=== PATIENT | female | born 1980 | race Two or more races ===

== ENCOUNTER 2022-11-03 02:38 | Emergency (ER) | payer SELFPAY ==
[2022-11-03 02:46] VITALS: BMI 44.6
[2022-11-03 03:44] LABS: BASO % 0.4 % (0-2.0); EOS % 4.7 % (0-4.5); HEMATOCRIT 34.2 % (32.4-45.2); HEMOGLOBIN 11.5 GM/dL (10.7-15.3); LYMPH % 29.4 % (8-40); MCH 27.9 pg (25.7-33.7); MCHC 33.5 g/dl (32.0-36.0); MEAN CELL VOLUME 83.4 fl (80-96); MEAN PLT VOLUME 7.5 fl (7.5-11.1); MONO % 6.9 % (3.8-10.2); NEUT % 58.6 % (42.8-82.8); PLATELET COUNT 327 10^3/uL (134-434); RBC 4.11 M/mm3 (3.60-5.2); RDW 16.2 % (11.6-15.6); WHITE BLOOD COUNT 8.9 K/mm3 (4.0-10.0)
[2022-11-03 03:51] LABS: INR 1.18 (0.83-1.09); PROTHROMBIN TIME (PATIENT) 13.7 SEC (9.7-13.0)
[2022-11-03 03:53] LABS: ACTIVATED PTT 31.1 SECONDS (25.2-36.5)
[2022-11-03 04:03] LABS: POTASSIUM 3.3 mmol/L (3.5-5.1)
[2022-11-03 04:05] LABS: CALCIUM 8.7 mg/dL (8.5-10.1)
[2022-11-03 04:06] LABS: ALBUMIN 3.1 g/dl (3.4-5.0); BLOOD UREA NITROGEN 9.3 mg/dL (7-18)
[2022-11-03 04:09] LABS: CREATININE 0.7 mg/dL (0.55-1.3)
[2022-11-03 04:10] LABS: BILIRUBIN,TOTAL 0.3 mg/dL (0.2-1); TOT PROT 6.9 g/dl (6.4-8.2)
[2022-11-03 04:14] LABS: N-TERMINAL BNP 24.3 pg/ml (5-125)
[2022-11-03 09:55] VITALS: BP 122/77; PULSE 79; RESP 18; TEMP 98.4
[2022-11-03] MEDS ORDERED: AZITHROMYCIN 250 MG TABLET PO ONE (10:31)
[2022-11-03] MEDS ORDERED: AZITHROMYCIN 500 MG TABLET ONE (10:37)
== END 2022-11-03 11:46 | disposition left against medical advice (07) ==
LOC: JER 02:38
DX: R07.89 Other chest pain (principal); R20.0 Anesthesia of skin; R20.2 Paresthesia of skin; R06.02 Shortness of breath; Z20.822 Contact with and (suspected) exposure to COVID-19
CPT/HCPCS: 0241U-QW; 36415; 71045-TC-FY; 71275-TC; 80053; 83735; 83880; 84484; 84703; 85025; 85379; 85610; 85730; 93005; 93010; 93970-TC; 99285-25; Q9967